=== PATIENT | female | born 1955 | race Caucasian/White ===

== ENCOUNTER → 2018-04-08 | Outpatient (REF) ==
[~2018-04-08] MED LIST: BENADRYL 50MG C50 MG OR; MEDDOSEPAK OR; NAPROSYN500 MG PO; NO CURRENT MEDS
== END | disposition home or self-care (01) | DRG 305 ==
LOC: LAB 08:17
PROVIDERS: ATTEND Physician Assistant Medical
DX: I10 Essential (primary) hypertension (principal)

== ENCOUNTER 2023-02-10 15:04 | Emergency (ER) | payer OTHER, BC ==
[~2023-02-10] VITALS: Ht 154.9 cm; Wt 99.0 kg
[2023-02-10 19:01] VITALS: BP 162/77
[2023-02-10 19:31] VITALS: BP 118/69
[2023-02-10 20:01] VITALS: BP 165/63
[2023-02-10] MEDS ORDERED: NAPROXEN500 MG PO ×2 (20:12→20:30)
[2023-02-10] MEDS ORDERED: TRAMADOL HYDROC50 M1 PO ×2 (20:18→20:30)
[2023-02-10 20:36] VITALS: BP 165/63
[2023-02-11] MEDS ORDERED: NAPROXEN500 MG PO (11:06)
== END 2023-02-10 20:36 | disposition home or self-care (01) | DRG 563 ==
LOC: ED 15:04
PROC: 0RSJXZZ Reposition Right Shoulder Joint, External Approach (ICD-10-PCS; principal; 2023-02-10)
DX: S43.014A Anterior dislocation of right humerus, initial encounter (principal); M25.562 Pain in left knee; I10 Essential (primary) hypertension; E78.5 Hyperlipidemia, unspecified; E11.9 Type 2 diabetes mellitus without complications; W01.0XXA Fall on same level from slipping, tripping and stumbling without subsequent striking against object, initial encounter; Y92.219 Unspecified school as the place of occurrence of the external cause; Y99.0 Civilian activity done for income or pay